=== PATIENT | female | born 1945 | race Caucasian/White ===

== ENCOUNTER 2016-04-11 16:14 | Emergency (ER) | payer OTHER ==
[~2016-04-11] VITALS: Ht 162.6 cm; Wt 85.4 kg
[2016-04-11 16:14] VITALS: TEMP 36.8; Ht 162.6 cm; Wt 85.4 kg
[~2016-04-11 16:14] MED LIST: ATEN100T8 PO; CHOL100010 PO; CLON0.2T PO; LEVO75TA5 PO; MULT-188 PO; MULT-506 PO; OMEG10007 PO; PRM/45 PO; SULF800T23 PO; ZOLP10TA PO; [UNRECOGNIZED DRUG - CODE] PO
[2016-04-11] MEDS ORDERED: ACETAMINOPHEN 500 MG TAB PO STA (16:24)
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
[2016-04-11] MEDS ORDERED: EST1 PO (17:47)
[2016-04-11] MEDS ORDERED: ASCO10003 PO (17:51)
[2016-04-11] MEDS ORDERED: TRMCR515 TOP (17:51)
[2016-04-11] MEDS ORDERED: SUPER COLLAGEN PO (17:51)
[2016-04-11] MEDS ORDERED: ASPI81TA28 PO (17:51)
[2016-04-11] MEDS ORDERED: OXYCODONE IR HOME PACK PO ONE (18:00)
[2016-04-11 18:10] VITALS: BP 162/79; PULSE 50; O2SAT 99
== END 2016-04-11 18:11 | disposition home or self-care (01) ==
LOC: EDBD 16:14 → C.EDB 16:16
DX: S40.012A Contusion of left shoulder, initial encounter (principal); S93.401A Sprain of unspecified ligament of right ankle, initial encounter; V43.52XA Car driver injured in collision with other type car in traffic accident, initial encounter; I10 Essential (primary) hypertension; E03.9 Hypothyroidism, unspecified; Z79.82 Long term (current) use of aspirin; Z79.899 Other long term (current) drug therapy

== ENCOUNTER → 2016-08-04 | Outpatient (CLI) | payer OTHER ==
[~2016-08-04] MED LIST changes: +ASCO10003 PO; +ASPI81TA28 PO; +EST1 PO; -PRM/45 PO; -SULF800T23 PO; +SUPER COLLAGEN PO; +TRMCR515 TOP
--- NOTE | 2016-08-04 14:57 | MAMMOGRAPHY REPORT ---
BILATERAL DIGITAL SCREENING MAMMOGRAM WITH CAD: 08/04/2016 CLINICAL HISTORY: Routine screening. Patient has no complaints. TECHNIQUE: Bilateral CC and MLO views were obtained. Current study was also evaluated with a Comput er Aided Detection (CAD) system. COMPARISON: Comparison is made to exams dated: 08/01/2015 mammogram, 07/27/2014 mammogram, 06/23/2013 mammogram, 06/15/2012 mammogram, 06/12/2011 mammogram, and 05/27/2010 mammogram - [facility]. BREAST COMPOSITION: The tissue of both breasts is heterogeneously dense, which may obscure small ma sses. FINDINGS: There is a possible cluster of microcalcifications in the upper outer posterior left [address], for which additional spot magnification views are recommended. A 7 mm nodular asymmetry in the superior, middle one third of the left breast appears stable on all available prior mammograms dating back to at least 05/12/2007, therefore likely benign. There is a stable 6 mm circumscribed mass in the lower inner anterior right breast. Stable clustered microcalc ifications in the right upper outer posterior breast. No other new suspicious mass, architectural di stortion or cluster of microcalcifications is seen bilaterally. IMPRESSION: ACR BI-RADS CATEGORY 0: INCOMPLETE EVALUATION: NEED ADDITIONAL IMAGING EVALUATION The possible cluster of microcalcifications in the upper outer posterior left breast needs additiona l evaluation. The patient will be called to schedule an appointment. Approximately 10% of breast cancers are not detected with mammography. A negative mammographic repor t should not delay biopsy if a clinically suggestive mass is present. Kayla Ernandez M.D. ay/:08/04/2016 14:02:47 Therapist: Mia ARTEAGA(R)(M), [facility] letter sent: Addl Imaging 0 BI-RADS Code: ACR BI-RADS Category 0: Incomplete Evaluation: Need Additional Imaging Evaluation
== END | disposition home or self-care (01) ==
LOC: C.MAMM 12:58
PROVIDERS: ATTEND Family Medicine
DX: Z12.31 Encounter for screening mammogram for malignant neoplasm of breast (principal)

== ENCOUNTER → 2016-08-07 | Outpatient (CLI) | payer OTHER ==
--- NOTE | 2016-08-07 14:25 | MAMMOGRAPHY REPORT ---
UNILATERAL LEFT DIGITAL DIAGNOSTIC MAMMOGRAM: 08/07/2016 CLINICAL HISTORY: Callback from screening mammogram for left breast calcifications. TECHNIQUE: Spot magnification left CC and ML views were obtained. COMPARISON: Comparison is made to exams dated: 08/04/2016 mammogram, 08/01/2015 mammogram, 07/27/2014 m ammogram, 06/23/2013 mammogram, 06/15/2012 mammogram, and 06/12/2011 mammogram - [facility]. BREAST COMPOSITION: The tissue of the left breast is heterogeneously dense, which may obscure small masses. FINDINGS: Spot magnification views of the left breast demonstrate grouped calcifications in the left upper outer quadrant. The calcifications are amorphous and smudgy on the cc view, and demonstrate la yering on the lateral view, consistent with benign milk of calcium. No suspicious masses or calcific ations are noted on the additional views. IMPRESSION: ACR BI-RADS CATEGORY 2: BENIGN Grouped calcifications in the left upper outer quadrant are benign and compatible with milk of calciu m. There is no mammographic evidence of malignancy. A 1 year screening mammogram is recommended. Th e patient has been verbally notified of the results. Approximately 10% of breast cancers are not detected with mammography. A negative mammographic report should not delay biopsy if a clinically suggestive mass is present. Kiera Joyner M.D. /:08/07/2016 11:20:29 [employer] Intelligence Officer: Leandro CASAREZ)(Aj), [facility] letter sent: Normal 1/2 BI-RADS Code: ACR BI-RADS Category 2: Benign
== END | disposition home or self-care (01) ==
LOC: C.MAMM 10:45
PROVIDERS: ATTEND Family Medicine
DX: R92.0 Mammographic microcalcification found on diagnostic imaging of breast (principal)

== ENCOUNTER → 2017-07-22 | Outpatient (CLI) | payer OTHER ==
--- NOTE | 2017-07-22 10:30 | DIAGNOSTIC IMAGING REPORT ---
R KNEE 1 OR 2 VIEWS ROUTINE HISTORY: 72 years-old Female KNEE PAIN W/WEIGHT BEARING acute right knee pain COMPARISON: None available TECHNIQUE: 2 views of the right knee FINDINGS: Mild medial and patellofemoral with moderate lateral compartment osteoarthritis. There is no acute fracture or dislocation. Small joint effusion. No opaque foreign body. IMPRESSION: 1. Small joint effusion without acute fracture or dislocation. 2. Tricompartmental osteoarthritis as above. The above report was generated using voice recognition software. It may contain grammatical, syntax or spelling errors. Electronically signed by: Marco Antonio Sullivan M.D. 07/22/2017 10:28 AM Dictated Date/Time: 07/22/2017 10:27 AM
[2017-07-22 12:15] LABS: HEMATOCRIT 37.9 % (37-47); HEMOGLOBIN 12.5 g/dL (12.0-16.0)
== END | disposition home or self-care (01) ==
LOC: C.RAD1850 10:05
PROVIDERS: ATTEND Family Medicine
DX: M17.11 Unilateral primary osteoarthritis, right knee (principal); M25.461 Effusion, right knee; R53.83 Other fatigue; E03.9 Hypothyroidism, unspecified